=== PATIENT | female | born 1950 | race Caucasian/White ===

== ENCOUNTER 2019-04-25 16:42 | Emergency (ER) | payer OTHER ==
[~2019-04-25] VITALS: Ht 170.2 cm; Wt 121.6 kg
[2019-04-25 16:49] VITALS: Ht 170.2 cm; Wt 121.6 kg
[2019-04-25 19:28] VITALS: BP 155/89
== END 2019-04-25 19:28 | disposition home or self-care (01) ==
LOC: ED 16:42
DX: S93.401A Sprain of unspecified ligament of right ankle, initial encounter (principal); I10 Essential (primary) hypertension; Z88.2 Allergy status to sulfonamides; X58.XXXA Exposure to other specified factors, initial encounter; Y93.89 Activity, other specified; Y92.89 Other specified places as the place of occurrence of the external cause; Y99.8 Other external cause status